=== PATIENT | female | born 1985 | race Caucasian/White ===

== ENCOUNTER → 2018-11-23 10:57 | Outpatient (CLI) | payer OTHER, SELFPAY ==
[2018-11-23 12:26] LABS: Hemoglobin A1c 6.3 % (4.2-6.3)
[2018-11-23 13:54] LABS: Free T3 2.7 pg/mL (2.18-3.98); Luteinizing Hormone 10.6 mIU/mL; Prolactin 5.9 ng/mL; T4 Free Direct 1.04 ng/dL (0.76-1.46); Thyroid Stim Hormone (TSH) 2.67 uIU/mL (0.358-3.74)
[2018-12-01 11:13] LABS: HPV HC, High Risk Negative (Negative)
== END ==
PROVIDERS: Visit Provider Obstetrics & Gynecology
DX: Z12.4 Encounter for screening for malignant neoplasm of cervix (principal); N92.1 Excessive and frequent menstruation with irregular cycle
CPT/HCPCS: 36415; 83001; 83002; 83036; 84144; 84146; 84439; 84443; 84481; 87624; 88175; G0145

== ENCOUNTER → 2018-12-01 15:57 | Outpatient (CLI) | payer OTHER, SELFPAY ==
[2018-12-01 18:10] LABS: Progesterone Level 3.59 ng/mL (See Comment)
== END ==
PROVIDERS: Visit Provider Obstetrics & Gynecology
DX: N92.1 Excessive and frequent menstruation with irregular cycle (principal)
CPT/HCPCS: 36415; 84144

== ENCOUNTER → 2019-07-21 13:41 | Outpatient (CLI) | payer OTHER, SELFPAY ==
[2019-07-21 16:21] LABS: Progesterone Level 0.29 ng/mL (See Comment)
== END ==
LOC: WOBLAB 13:42
PROVIDERS: Visit Provider Obstetrics & Gynecology
DX: N97.0 Female infertility associated with anovulation (principal)
CPT/HCPCS: 36415; 84144

== ENCOUNTER → 2019-09-12 09:31 | Outpatient (CLI) | payer OTHER, SELFPAY ==
[2019-09-13 14:56] LABS: Progesterone Level 4.96 ng/mL (See Comment)
== END ==
PROVIDERS: Visit Provider Obstetrics & Gynecology
DX: N97.0 Female infertility associated with anovulation (principal)
CPT/HCPCS: 36415; 84144

== ENCOUNTER → 2019-10-13 10:49 | Outpatient (CLI) | payer OTHER, SELFPAY ==
[2019-10-13 12:13] LABS: Progesterone Level 7.28 ng/mL (See Comment)
== END ==
PROVIDERS: Visit Provider Obstetrics & Gynecology
DX: N97.0 Female infertility associated with anovulation (principal)
CPT/HCPCS: 36415; 84144